=== PATIENT | female | born 1950 | race Caucasian/White ===

== ENCOUNTER 2021-06-07 10:17 | Observation (INO) | payer MEDICARE ==
[~2021-06-07] VITALS: Ht 172.7 cm; Wt 77.1 kg
[2021-06-07] MEDS ORDERED: LISINOPRIL-HCT1 EAC1 (10:56)
[2021-06-07] MEDS ORDERED: AMLODIPINE BES2.5 MG (10:56)
[2021-06-07] MEDS ORDERED: ASPIRIN 81 MG CHEW TAB ONE (12:00)
[2021-06-07] MEDS ORDERED: ONDANSETRON HCL INJ 2MG/ML 2ML 2 MG/ML VIAL IV PRN ×2 (12:00→16:45)
[2021-06-07] MEDS ORDERED: ASPIRIN 81 MG CHEW TAB PO ONE (12:15)
[2021-06-07 12:52] LABS: CREATINE KINASE MB 0.4 ng/mL (0-5.0)
[2021-06-07 13:20] VITALS: BP_SYST 140; BP_SYST 144; BP_DIAS 65; BP_DIAS 82
[2021-06-07] MEDS ORDERED: MORPHINE SULFATE INJ 2 MG/ML SYR IV ONE (14:45)
[2021-06-07] MEDS ORDERED: ACETAMINOPHEN 325 MG TAB PO PRN (16:45)
[2021-06-07] MEDS ORDERED: HYDRALAZINE HCL 20 MG/ML VIAL IV PRN (16:45)
[2021-06-07 16:54] VITALS: BP 144/65
[2021-06-07] MEDS ORDERED: METOPROLOL TARTRATE 50 MG TAB PO SCH (17:00)
[2021-06-07] MEDS ORDERED: SODIUM CHLORIDE 0.9% 50ML 50 ML ONE (19:09)
[2021-06-07] MEDS ORDERED: IOPAMIDOL 370 MG/ML 200 ML INFUS..BTL INJ ONE (19:09)
[2021-06-07 20:20] VITALS: BP 119/64
[2021-06-07 20:32] LABS: CREATINE KINASE MB 0.4 ng/mL (0-5.0)
[2021-06-07] MEDS ORDERED: KETOROLAC TROMETHAMINE 30 MG/ML VIAL IV STA (21:06)
[2021-06-07] MEDS ORDERED: MORPHINE SULFATE INJ 2 MG/ML SYR IV PRN (21:15)
[2021-06-07 21:59] VITALS: BP 119/64
[2021-06-07 23:57] VITALS: BP 121/66
[2021-06-08 04:15] VITALS: BP 129/85
[2021-06-08 05:34] LABS: BASOPHILS % 0.4 % (0.0-1.0); EOSINOPHILS # (AUTO) 0.3 (0.0-0.4); EOSINOPHILS % 4.4 % (0.0-6.0); HEMATOCRIT 38.7 % (34.2-44.1); HEMOGLOBIN 12.7 g/dL (12.0-16.0); LYMPHOCYTES # (AUTO) 1.5 (1.0-3.2); LYMPHOCYTES % 20.6 % (18.0-39.1); MEAN CORPUSCULAR HEMOGLOBIN 26.5 pg (28-32); MEAN CORPUSCULAR HGB CONC 32.8 g/dL (31-35); MEAN CORPUSCULAR VOLUME 80.6 fL (81-99); MONOCYTES # (AUTO) 0.7 (0.2-0.8); MONOCYTES % 8.8 % (4.4-11.3); NEUTROPHILS # (AUTO) 4.9 (2.1-6.9); NEUTROPHILS % 65.4 % (38.7-80.0); PLATELET COUNT 190 x10e3/uL (140-360); RED CELL DISTRIBUTION WIDTH 14.6 % (11.7-14.4)
[2021-06-08 06:15] LABS: ALBUMIN 3.3 g/dL (3.5-5.0); ALBUMIN/GLOBULIN RATIO 0.9 (0.8-2.0); ANION GAP 16.5 mmol/L (8-16); CALCIUM 8.9 mg/dL (8.4-10.2); CREATININE, SERUM 0.84 mg/dL (0.57-1.11); POTASSIUM 3.5 mmol/L (3.5-5.1)
[2021-06-08 06:35] LABS: CREATINE KINASE MB 0.4 ng/mL (0-5.0)
[2021-06-08 06:51] LABS: CHOL/HDL RATIO 3.5 (3.0-3.6); MAGNESIUM 2.1 MG/DL (1.3-2.1)
[2021-06-08 07:14] LABS: THYROID STIMULATING HORMONE 2.468 uIU/mL (0.350-4.940)
[2021-06-08 08:05] VITALS: BP 139/74
[2021-06-08 08:50] VITALS: BP 139/74
[2021-06-08] MEDS ORDERED: ASPIRIN 81 MG ENTERIC COATED PO SCH (09:00)
[2021-06-08] MEDS ORDERED: METOPROLOL TARTRATE 25 MG TAB PO SCH (09:00)
== END 2021-06-08 11:14 | disposition left against medical advice (07) ==
LOC: FSED 10:35 → ERHOLD 12:36 → MED/SURG3 13:15
PROVIDERS: ADMIT Internal Medicine; ATTEND Internal Medicine
DX: R07.2 Precordial pain (principal); E66.9 Obesity, unspecified; Z68.25 Body mass index [BMI] 25.0-25.9, adult; I10 Essential (primary) hypertension; Z90.49 Acquired absence of other specified parts of digestive tract; Z72.0 Tobacco use
CPT/HCPCS: 36415 ×2; 71046; 71260; 80048; 80053; 80061; 81003; 82550 ×2; 82553 ×2; 83036; 83735; 83880; 84443; 84484 ×2; 85025 ×2; 85379; 93005; 93306; 93970; 99284; G0378 ×2; J1885; J2270; Q9967